=== PATIENT | female | born 1955 | race Caucasian/White ===

== ENCOUNTER → 2016-12-19 | Day surgery (SDC) | payer BC ==
[~2016-12-19] MED LIST: ASPIRIN81 M2 PO; CALCIUM500 M1; MULTI-DAY VITA1 EACH; TUMERIC; VITAMIN D31000 UNIT PO
--- NOTE | ~2016-12-19 | OR ---
Unit #: [id number] #: [id number] Patient: BUSHRA CRAFT [id number] [address] [place], [place] [address] [id number] MR#: [id number] NAME: BUSHRA CRAFT ROOM: Date of Procedure: 12/19/2016 Admission Date: 12/19/2016 Surgeon: Manoj Mei M.D. : 1955 Attending Physician: Manoj Mei M.D. Primary Care Physician: Jenae Funes M.D. OPERATIVE REPORT PREOPERATIVE DIAGNOSES Colorectal cancer surveillance. The patient has personal history of colon polyps. PROCEDURE PERFORMED Colonoscopy up to cecum with excellent preparation and good visualization. POSTOPERATIVE DIAGNOSES Completely normal examination up to cecum. No polyps, diverticula, or hemorrhoids were seen. The quality of the prep was excellent. RECOMMENDATIONS Repeat colonoscopy in 5 years. SEDATION USED MAC. DESCRIPTION OF PROCEDURE Following detailed explanation of the potential risks and complications of a colonoscopy, namely perforation, bleeding, and complications related to sedation, the patient was brought to GI lab and laid in the left lateral decubitus position. A digital rectal examination was performed, which was normal. Lubricated tip of the Olympus video colonoscope was inserted through the anus and advanced under direct vision. The scope was advanced past rectosigmoid into descending colon. No diverticula were noticed in this area. The scope tip was then navigated all the way up to cecum with visualization of the ileocecal valve and the appendiceal orifice. Preparation was good with good visualization and photodocumentation was obtained. Successive segments of the colonic mucosa were examined upon withdrawal and appeared unremarkable. There being no polyps, mass lesions, AVMs, or diverticula. The patient did not have any hemorrhoids at anal verge. The scope was then withdrawn and the patient returned to the recovery area. She tolerated the procedure without any postprocedure complications. Dictated by... Timothy Devi/allie Unit #: [id number] #: [id number] Patient: BUSHRA CRAFT TD: 12/19/2016 11:03 JOB #: [id number] OPERATIVE REPORT Page 1 of 1 X Manoj Mei MD PROCEDURE OPERATIVE NOTE
== END | disposition home or self-care (01) ==
LOC: COPS 06:20
DX: Z12.11 Encounter for screening for malignant neoplasm of colon (principal); Z86.010 Personal history of colon polyps; Z87.891 Personal history of nicotine dependence; Z79.82 Long term (current) use of aspirin; Z79.899 Other long term (current) drug therapy; Z98.890 Other specified postprocedural states
CPT/HCPCS: J2250